=== PATIENT | female | born 1965 | race Caucasian/White ===

== ENCOUNTER 2016-03-09 22:12 | Emergency (ER) | payer BC ==
[~2016-03-09] VITALS: Wt 78.5 kg
[~2016-03-09 22:12] MED LIST: ALBU8.5H3 INH; BEN25 PO; HYDR-3011 PO; KETO120S2 TOP; PRED50TA PO; PSEU120T68 PO
[2016-03-09] MEDS ORDERED: KETOROLAC 30 MG INJ IM STA (23:21)
--- NOTE | 2016-03-10 00:09 | ERD ---
ER Documentation Chief Complaint Date/Time DATE: 03/10/16 TIME: 00:05 Chief Complaint left shoulder pain and stiffness x 8 days HPI This is a 50-year-old female presenting to the ER for left shoulder pain and stiffness 8 days. Patient is having pain to left shoulder that radiates to left neck and upper back. Patient is unable to raise left arm overhead. Has been taking Advil with no relief of pain. Denies any fall or recent injury. Patient currently rating pain 7/10. Describes pain as aching. No aggravating or relieving factors. Denies chest pain, palpitations, shortness breath or difficulty breathing. No fevers or chills. Patient has not had this pain before. Patient is right-handed. ROS All systems reviewed and are negative except as per history of present illness. Medications Home Meds Active Scripts Hydrocodone/Acetaminophen ([place] 5-325 Tablet) 1 Each Tablet, 1 TAB PO Q6H Y for PAIN, #7 TAB Prov:MARLIN DOAN NP 03/10/16 Ibuprofen* (Motrin*) 800 Mg Tab, 800 MG PO Q6, #20 TAB Prov:MARLIN DOAN NP 03/10/16 Pseudoephedrine Hcl* (Pseudoephedrine* ER) 120 Mg Tablet.er, 120 MG PO BID Y for CONGESTION for 10 Days, TAB.SA Prov:MARLIN DOAN NP 11/09/15 Albuterol Sulfate* (Proair HFA*) 8.5 Gm Hfa.aer.ad, 2 PUFF INH Q4, #1 INHALER Prov:MARLIN DOAN NP 11/09/15 Hydroxyzine Hcl* (Hydroxyzine Hcl*) 25 Mg Tablet, 25 MG PO Q8H Y for ITCHING, # 30 TAB Prov:ADALID BLOUNT NP 08/13/15 Ketoconazole* (Ketoconazole*) 2% - 120 Ml Shampoo, 1 APPLIC TOP DAILY, #1 EA WASH HAIR/SCALP AND RINSE OFF Prov:ADALID BLOUNT NP 08/13/15 Prednisone* (Prednisone*) 50 Mg Tablet, 50 MG PO DAILY for 5 Days, TAB Prov:ADALID BLOUNT NP 06/24/15 Diphenhydramine Hcl* (Benadryl*) 25 Mg Cap, 25 MG PO Q6, #30 CAP Prov:ADALID BLOUNT BREWSTER TYousif DELVALLE 06/24/15 Reported Medications [none] Unknown Strength No Conflict Check 06/24/15 Allergies Allergies: Coded Allergies: No Known Allergy (Unverified , 06/24/15) PMhx/Soc History of Surgery: Yes (appendectomy, hysterectomy, section x 2) Anesthesia Reaction: No Hx Neurological Disorder: No Hx Respiratory Disorders: No Hx Cardiac Disorders: No Hx Psychiatric Problems: No Hx Miscellaneous Medical Probl: No Hx Alcohol Use: No Hx Substance Use: No Hx Tobacco Use: No Smoking Status: Never smoker Physical Exam Vitals Vital Signs Date Time Temp Pulse Resp B/P Pulse Ox O2 Delivery O2 Flow Rate FiO2 03/09/16 22:19 98.7 100 20 139/73 98 Physical Exam Const: Alert, [id number] Head: Atraumatic Eyes: Normal Conjunctiva ENT: Normal External Ears, Nose and Mouth. Neck: Full range of motion..~ No meningismus. Resp: Clear to auscultation bilaterally. No wheezing, rhonchi or crackles. Cardio: Regular rate and rhythm, no murmurs Abd: Soft, non tender, non distended. Normal bowel sounds Skin: No petechiae or rashes Back: No midline or flank tenderness Ext: Limited mobility to left upper extremity. Limited active and passive range of motion to left shoulder. Strength equal bilaterally. Neur: Awake and alert Psych: Normal Mood and Affect Result Diagram: 03/10/16 0007 Results 24 hrs Laboratory Tests Test 03/10/16 00:07 Basophils # 0.010^3/ul Basophils % 0.6% Blood Morphology Comment Eosinophils # 0.210^3/ul Eosinophils % 2.3% Hematocrit 38.4% Hemoglobin 12.8g/dl Lymphocytes # 2.610^3/ul Lymphocytes % 31.4% Mean Corpuscular Hemoglobin 28.0pg Mean Corpuscular Hemoglobin Concent 33.2g/dl Mean Corpuscular Volume 84.4fl Mean Platelet Volume 7.8fl Monocytes # 0.710^3/ul Monocytes % 8.4% Neutrophils # 4.710^3/ul Neutrophils % 57.3% Nucleated Red Blood Cells # 0.010^3/ul Nucleated Red Blood Cells % 0.0/100WBC Platelet Count 82210^3/UL Red Blood Count 4.5610^6/ul Red Cell Distribution Width 13.2% White Blood Count 8.210^3/ul Current Medications Medications (Trade) Dose Ordered Sig/Angela Route PRN Reason Start Time Stop Time Status Last Admin Dose Admin Ketorolac Tromethamine (Toradol) 30 mg ONCE STAT IM 03/09/16 23:21 03/09/16 23:26 DC 03/10/16 00:00 Procedures/MDM ED COURSE: The patient was stable throughout ED course. I kept the patient and/or family informed of laboratory and diagnostic imaging results throughout the ED course. Toradol given Laboratory CBC no significant infection or anemia Imaging X-ray left shoulder Patient: AVINASH HI : 1965 Age: 50 Sex: F MR #: [id number] DOS: 03/09/162320 Ordering MD: MARLIN DOAN NP Location: [facility] Room/Bed: PROCEDURE: LEFT SHOULDER CLINICAL INDICATION: 50-year-old female with left shoulder pain and stiffness. TECHNIQUE: Two-views of the left shoulder were obtained. The images reviewed on a PACS workstation. COMPARISON: Chest x-ray November 09, 2015. FINDINGS: No evidence of fracture or dislocation is seen. The glenohumeral and acromioclavicular joint spaces appears intact. There is a calcific density overlying the left superolateral humeral head most consistent with calcific tendinosis. Note that this was present on the patient's prior chest x-ray from November 09, 2015 is without significant interval change. Limited views of the clavicle and thorax are unremarkable. IMPRESSION: 1. No acute fracture or dislocation. 2. Calcific density overlying the left superolateral humeral head most consistent with calcific tendonitis without significant change compared to the patient's prior chest x-ray from November 09, 2015. Chest xray Patient: AVINASH HI : 1965 Age: 50 Sex: F MR #: [id number] DOS: 03/09/162320 Ordering MD: MARLIN DOAN NP Location: [facility] Room/Bed: PROCEDURE: CHEST - 1 VIEW CLINICAL INDICATION: 50-year-old female with upper back and left shoulder pain. TECHNIQUE: A single frontal AP semi-erect view of the chest was performed. The images were reviewed on a PACS workstation. COMPARISON: Chest x-ray November 09, 2015; left shoulder obtained concurrently. FINDINGS: The cardiomediastinal silhouette has a normal appearance. There is no evidence for an infiltrate. There is no evidence for congestive heart failure. There is no evidence for pneumothorax. The osseous structures are intact. There is again identified a calcific density overlying the left superolateral humeral head most suggestive of calcific tendonitis. IMPRESSION: 1. No evidence for active cardiopulmonary disease. 2. Calcific density overlying the left superolateral humeral head most consistent with calcific tendonitis similar in appearance to the patient's prior study from November 09, 2015. MDM: 50-year-old female presents emergency department for left shoulder pain and limited mobility 8 days. No recent fall or injury. Vital signs are stable. No fevers or chills. X-ray left shoulder as reviewed by radiologist shows no acute fracture or dislocation. Calcific density overlying the left superolateral humeral head most consistent with calcific tendonitis without significant change compared to the patient's prior chest x-ray from November 09, 2015. Chest xray reviewed by radiologist as the same. Patient's pain has improved significantly after Toradol administration. Patient appears comfortable throughout ED visit. Vital signs remained stable. Low suspicion for septic arthritis or osteomyelitis. Patient's differential diagnosis includes but not limited to calcific tendinitis, osteoarthritis, rheumatoid arthritis, adhesive capsulitis and bursitis. Patient is appropriate for outpatient management and will be discharged with prescription for ibuprofen and [place]. Instructed patient to follow-up with primary care provider in the next 1-2 days for reassessment and additional management. Return to ED for any high fever, chest pain, difficulty breathing, shortness breath, wheezing, vomiting, diarrhea, abdominal pain or any new or worsening symptoms. Patient verbalizes understanding. All questions answered at discharge. Departure Diagnosis: Primary Impression: Shoulder pain Laterality: left Chronicity: acute Qualified Code: M25.512 - Acute pain of left shoulder Condition: Stable MARLIN DOAN NP Mar 10, 2016 00:09
[2016-03-10 00:49] LABS: BASOPHILS % 0.6 % (0.0-2.0); EOSINOPHILS # 0.2 10^3/ul (0.0-0.5); EOSINOPHILS % 2.3 % (0.0-7.0); HEMATOCRIT 38.4 % (37.0-47.0); HEMOGLOBIN 12.8 g/dl (12.0-16.0); LYMPHOCYTES # 2.6 10^3/ul (0.8-2.9); LYMPHOCYTES % 31.4 % (15.0-51.0); MEAN CORPUSCULAR HGB CONC 33.2 g/dl (32.0-37.0); MEAN CORPUSCULAR VOLUME 84.4 fl (82.0-101.0); MEAN PLATELET VOLUME 7.8 fl (7.4-10.4); MONOCYTE # 0.7 10^3/ul (0.3-0.9); MONOCYTES % 8.4 % (0.0-11.0); NEUTROPHIL # 4.7 10^3/ul (1.6-7.5); NEUTROPHILS % 57.3 % (39.0-77.0); PLATELET COUNT 297 10^3/UL (140-440); RED BLOOD COUNT 4.56 10^6/ul (4.20-5.40); RED CELL DISTRIBUTION WIDTH 13.2 % (11.5-14.5); UNCORRECTED WBC 8.2 10^3/ul (4.8-10.8); WHITE BLOOD COUNT 8.2 10^3/ul (4.8-10.8)
[2016-03-10 00:50] LABS: CONDITION 1
--- NOTE | 2016-03-10 00:53 | RADRPT ---
PROCEDURE: CHEST - 1 VIEW CLINICAL INDICATION: 50-year-old female with upper back and left shoulder pain. TECHNIQUE: A single frontal AP semi-erect view of the chest was performed. The images were review ed on a PACS workstation. COMPARISON: Chest x-ray November 09, 2015; left shoulder obtained concurrently. FINDINGS: The cardiomediastinal silhouette has a normal appearance. There is no evidence for an infiltrate. There is no evidence for congestive heart failure. There is no evidence for pneumothorax. The osseou s structures are intact. There is again identified a calcific density overlying the left superolater al humeral head most suggestive of calcific tendonitis. IMPRESSION: 1. No evidence for active cardiopulmonary disease. 2. Calcific density overlying the left superolateral humeral head most consistent with calcific ten donitis similar in appearance to the patient's prior study from November 09, 2015. .Lupillo Christianson MD, MD Date Time Electronically viewed and signed by .Lupillo Christianson MD, MD on 03/10/2016 00:53 .M/
--- NOTE | 2016-03-10 00:54 | RADRPT ---
PROCEDURE: LEFT SHOULDER CLINICAL INDICATION: 50-year-old female with left shoulder pain and stiffness. TECHNIQUE: Two-views of the left shoulder were obtained. The images reviewed on a PACS workstation . COMPARISON: Chest x-ray November 09, 2015. FINDINGS: No evidence of fracture or dislocation is seen. The glenohumeral and acromioclavicular joint spaces appears intact. There is a calcific density overlying the left superolateral humeral head most consi stent with calcific tendinosis. Note that this was present on the patient's prior chest x-ray from November 09, 2015 is without significant interval change. Limited views of the clavicle and thorax are unremarkable. IMPRESSION: 1. No acute fracture or dislocation. 2. Calcific density overlying the left superolateral humeral head most consistent with calcific ten donitis without significant change compared to the patient's prior chest x-ray from November 08 16. .Lupillo Christianson MD, MD Date Time Electronically viewed and signed by .Lupillo Christianson MD, on 03/10/2016 00:54 .M/
[2016-03-10] MEDS ORDERED: HYDR-906 PO (01:27)
[2016-03-10] MEDS ORDERED: IBUP800T25 PO (01:27)
[2016-03-10 01:40] VITALS: BP 129/68; PULSE 87; RESP 20; TEMP 98.1
== END 2016-03-10 01:41 | disposition home or self-care (01) ==
LOC: FTE 22:12
DX: M25.512 Pain in left shoulder (principal)
CPT/HCPCS: 36415; 71010; 73030; 85025; 96372; 99284; J1885